=== PATIENT | male | born 1985 | race Caucasian/White ===

== ENCOUNTER 2024-01-29 16:29 | Emergency (ER) | payer OTHER ==
[2024-01-29 16:40] VITALS: RESP 18; TEMP 98.2
[2024-01-29] MEDS: LIDOCAINE 1% INJ 10MG/ML (20 ML MDV) SQ ONE (17:08)
[2024-01-29] MEDS: DIPH,PERTUS(ACELL)TETVAC-LF 0.5 ML VIAL IM ONE (17:09)
[2024-01-29 17:18] LABS: Basophils # (A) 0.1 k/uL (0-0.2); Basophils % (A) 0 %; Eosinophils # (A) 0.1 k/uL (0-0.7); Eosinophils % (A) 1 %; HCT 42.3 % (39.0-53.0); Lymphocytes # (A) 4.1 k/uL (1.0-4.8); Lymphocytes % (A) 34 %; MCH 31.8 pg (25.0-35.0); MCHC 35.5 g/dL (31.0-37.0); MCV 89.7 fL (80.0-100.0); Mean Platelet Volume 8.5; Monocytes # (A) 0.9 k/uL (0-1.0); Monocytes % (A) 8 %; Neutrophils # (A) 6.6 k/uL (1.3-7.7); Neutrophils % (A) 54 %; Platelet Count 297 k/uL (150-450); RBC 4.71 m/uL (4.30-5.90); RDW 12.7 % (11.5-15.5); WBC 12.2 k/uL (3.8-10.6)
--- NOTE | 2024-01-29 18:38 | ED ---
Lower Extremity Injury HPI - General Chief Complaint: Extremity Injury, Lower Stated Complaint: leg lac Time Seen by Provider: 01/29/24 16:40 Source: patient Mode of arrival: ambulatory Limitations: no limitations - History of Present Illness Initial Comments: 38-year-old male presents emergency department with a laceration to his left leg. States that he was carrying a toilet down the stairs when he lost hold of it and accidentally kicked the toilet with his left leg. He sustained a laceration that had pretty significant bleeding. He did wrap it with paper towel and electrical tape and came immediately to the hospital. His last tetanus was 15 years ago. He is able to ambulate on the extremity. Denies much pain. Bleeding controlled upon hospital arrival. No other injuries. No other alleviating, precipitating or modifying factors - Related Data Previous Rx's Medication Instructions Recorded Bacitracin Zinc Oint 1 applic TOPICAL BID #28 gm 01/29/24 Allergies Allergy/AdvReac Type Severity Reaction Status Date / Time No Known Allergies Allergy Verified 01/29/24 16:36 Review of Systems ROS Statement: Those systems with pertinent positive or pertinent negative responses have been documented in the HPI. ROS Other: All systems not noted in ROS Statement are negative. Past Medical History Past Medical History: No Reported History Past Surgical History: Back Surgery Additional Past Surgical History / Comment(s): nose, eye Smoking Status: Never smoker Past Alcohol Use History: Occasional Past Drug Use History: None Reported General Exam Limitations: no limitations General appearance: alert, in no apparent distress Head exam: Present: atraumatic, normocephalic, normal inspection Eye exam: Present: normal appearance, PERRL, EOMI. Absent: scleral icterus, conjunctival injection, periorbital swelling ENT exam: Present: normal exam, mucous membranes moist Neck exam: Present: normal inspection. Absent: tenderness, meningismus, lymphadenopathy Respiratory exam: Present: normal lung sounds bilaterally. Absent: respiratory distress, wheezes, rales, rhonchi, stridor Cardiovascular Exam: Present: regular rate, normal rhythm, normal heart sounds. Absent: systolic murmur, diastolic murmur, rubs, gallop, clicks GI/Abdominal exam: Present: soft, normal bowel sounds. Absent: distended, tenderness, guarding, rebound, rigid Extremities exam: Present: normal inspection, full ROM, normal capillary refill. Absent: tenderness, pedal edema, joint swelling, calf tenderness Back exam: Present: normal inspection Neurological exam: Present: alert, oriented X3, CN II-XII intact Psychiatric exam: Present: normal affect, normal mood Skin exam: Present: warm, dry, normal color, other (Laceration left anterior flanagan measuring 6 cm in length by 0.5 cm. Bleeding is controlled. Involvement of the subcutaneous tissue but no nerve or vascular involvement. No identifiable underlying bony fracture). Absent: rash Course Vital Signs 01/29/24 01/29/24 01/29/24 16:37 16:45 18:49 Temperature 98.2 F Pulse Rate 107 H 97 108 H Respiratory 18 18 18 Rate Blood Pressure 130/79 144/82 148/96 O2 Sat by Pulse 97 97 98 Oximetry Procedures - Laceration Laceration #1 Consent Obtained: verbal consent Indication: laceration Site: lower extremity Size (cm): 6 Description: linear Depth: simple, single layer Anesthetic Used: lidocaine 1% Anesthesia Technique: local infiltration Amount (mls): 8 Pre-repair: wound explored, irrigated extensively, deep structures intact Type of Sutures: nylon Size of Sutures: 4-0 Number of Sutures: 8 Technique: simple, interrupted Patient Tolerated Procedure: well, no complications Medical Decision Making - Medical Decision Making Was pt. sent in by a medical professional or institution ([facility], [employer]ITION SUPERVISOR, urgent care, hospital, or group home...) When possible be specific @ -No Did you speak to anyone other than the patient for history (EMS, parent, family, police, friend...)? What history was obtained from this source @ -No Did you review nursing and triage notes (agree or disagree)? Why? @ -I reviewed and agree with nursing and triage notes Were old charts reviewed (outside hosp., previous admission, EMS record, old EKG, old radiological studies, urgent care reports/EKG's, group home records)? Report findings @ -No old charts were reviewed Differential Diagnosis (chest pain, altered mental status, abdominal pain women, abdominal pain men, vaginal bleeding, weakness, fever, dyspnea, syncope, headache, dizziness, GI bleed, back pain, seizure, CVA, palpatations, mental health, musculoskeletal)? @Laceration, abrasion, fracture, foreign body EKG interpreted by me (3pts min.). @ -Not done X-rays interpreted by me (1pt min.). @ -None done CT interpreted by me (1pt min.). @ -None done U/S interpreted by me (1pt. min.). @ -None done What testing was considered but not performed or refused? (CT, X-rays, U/S, labs)? Why? @ -X-ray recommended however patient refused What meds were considered but not given or refused? Why? @ -None Did you discuss the management of the patient with other professionals (professionals i.e. , PA, AMMUNITION SUPERVISOR, lab, RT, psych nurse, social media community manager, grocery sacker, teacher, investigation officer, assistant case manager)? Give summary @ -No Was smoking cessation discussed for >3mins.? @ -No Was critical care preformed (if so, how long)? @ -No Were there social determinants of health that impacted care today? How? (Homelessness, low income, unemployed, alcoholism, drug addiction, transportation, low edu. Level, literacy, decrease access to med. care, residential, rehab)? @ -No Was there de-escalation of care discussed even if they declined (Discuss DNR or withdrawal of care, Hospice)? DNR status @ -No What co-morbidities impacted this encounter? (DM, HTN, Smoking, COPD, CAD, Cancer, CVA, ARF, Chemo, Hep., AIDS, mental health diagnosis, sleep apnea, morbid obesity)? @ -None Was patient admitted / discharged? Hospital course, mention meds given and route, prescriptions, significant lab abnormalities, going to OR and other pertinent info. @ -Upon arrival patient seen and evaluated in trauma 1. Thorough history and physical exam was performed. Bleeding is controlled. I did recommend x-ray which the patient refused. He was given a tetanus shot. I did cleanse the wound with 3 L of normal saline. I inspected the wound which had no foreign bodies. Laceration was repaired with 8, 4-0 nylon sutures. Patient informed that the stitches must be removed in 7 to 10 days. Return to the primary care office or hospital to have these stitches removed. Return sooner to the hospital if he has any redness, swelling or pustular drainage. We did place bacitracin and this is sent to the pharmacy so he can use this at home. Patient agreeable plan was discharged in stable condition Undiagnosed new problem with uncertain prognosis? @ -No Drug Therapy requiring intensive monitoring for toxicity (Heparin, Nitro, Insulin, Cardizem)? @ -No Were any procedures done? @ -No Diagnosis/symptom? @ -Laceration left leg Acute, or Chronic, or Acute on Chronic? @ -Acute Uncomplicated (without systemic symptoms) or Complicated (systemic symptoms)? @ -Uncomplicated Side effects of treatment? @ -No Exacerbation, Progression, or Severe Exacerbation? @ -No Poses a threat to life or bodily function? How? (Chest pain, USA, MS, pneumonia, PE, COPD, DKA, ARF, appy, cholecystitis, CVA, Diverticulitis, Homicidal, Suicidal, threat to staff... and all critical care pts) @ -No - Lab Data Result diagrams: 01/29/24 16:50 Lab Results 01/29/24 Range/Units 16:50 WBC 12.2 H (3.8-10.6) k/uL RBC 4.71 (4.30-5.90) m/uL Hgb 15.0 (13.0-17.5) gm/dL Hct 42.3 (39.0-53.0) % MCV 89.7 (80.0-100.0) fL MCH 31.8 (25.0-35.0) pg MCHC 35.5 (31.0-37.0) g/dL RDW 12.7 (11.5-15.5) % Plt Count 297 (150-450) k/uL MPV 8.5 Neutrophils % 54 % Lymphocytes % 34 % Monocytes % 8 % Eosinophils % 1 % Basophils % 0 % Neutrophils # 6.6 (1.3-7.7) k/uL Lymphocytes # 4.1 (1.0-4.8) k/uL Monocytes # 0.9 (0-1.0) k/uL Eosinophils # 0.1 (0-0.7) k/uL Basophils # 0.1 (0-0.2) k/uL Disposition Clinical Impression: Leg laceration Disposition: HOME SELF-CARE Condition: Stable Instructions (If sedation given, give patient instructions): Laceration (ED) Additional Instructions: Please have your 8 stitches taken out in 7 to 10 days. Follow-up at the [facility] here or with your primary care doctor to have them taken out. Place bacitracin to the area twice a day. Return should you have any redness, warmth or drainage from the site. Prescriptions: Bacitracin Zinc Oint 1 applic TOPICAL BID #28 gm Is patient prescribed a controlled substance at d/c from ED?: No Referrals: Linus George Jr, [Primary Care Provider] - 1-2 days Time of Disposition: 18:37
[2024-01-29 18:49] VITALS: BP 148/96; PULSE 108
[2024-01-29] MEDS: BACITRACIN OINT 1 EACH PACKET TOPICAL ONE (19:09)
== END 2024-01-29 19:09 | disposition home or self-care (01) ==
LOC: EC 16:29
CPT/HCPCS: 12002; 36415; 85025; 90471; 90715; 99283